=== PATIENT | male | born 2000 | race Two or more races ===

== ENCOUNTER → 2020-12-03 | Outpatient (CLI) | payer OTHER ==
[~2020-12-03] MED LIST: ISOVUE-300 61% 50ML VIAL As Ordered ONE; LIDOCAINE 1% MDV 20ML VIAL As Ordered ONE; TRIAMCINOLONE ACETONIDE SUSP 40 MG/ML VIAL (J3301) As Ordered ONE
--- NOTE | 2020-12-03 12:53 | REP ---
INDICATION: ISCHIAL CASULAR LIGAMENT SPRAIN LT HIP. COMPARISON: None TECHNIQUE: The procedure was performed by HERO Feliciano, under the direct supervision of Dr. Pineda. The benefits and risks of the procedure were explained to the patient, and an informed consent was obtained. Directly prior to the start of the procedure, a formal time-out was completed in the procedure room. The left femoral neck joint space was localized using fluoroscopic guidance. The skin was prepped and draped in a sterile fashion. Approximately 5 mL of 1% Lidocaine 10 mg/ml was used as a local anesthetic. Using fluoroscopic guidance, a #22 gauge spinal needle was inserted and advanced into the left femoral neck joint space. Approximately 1 mL of Isovue 300 was injected to verify placement. Ten mL of a solution containing 9 mL 1% lidocaine 10 mg/ml and 1 mL Kenalog 40 milligrams/milliliter was injected into the joint space. The needle was removed and hemostasis was achieved. FINDINGS: The patient tolerated the procedure well and there were no immediate complications. IMPRESSION: 1. Fluoroscopic guided left hip pain injection. 0.1 minutes of fluoroscopy time was utilized for this procedure. Some fluoroscopic images are performed with last image hold technology. These images require no additional radiation. <Electronically signed by Mónica Soni > 12/03/20 1231 <Electronically signed by Delvis Pineda > 12/03/20 [id number]
== END ==
LOC: M RADPRO 11:39
PROVIDERS: ATTEND Physician Assistant Surgical
DX: S73.122A Ischiocapsular ligament sprain of left hip, initial encounter (principal)
CPT/HCPCS: 20610; 77002; J3301; Q9967

== ENCOUNTER → 2020-12-29 | Outpatient (CLI) | payer OTHER ==
--- NOTE | 2020-12-29 14:12 | REP ---
INDICATION: PAIN IN LT WRIST. COMPARISON: None. TECHNIQUE: Axial T1. Coronal fat suppressed proton density, fat suppressed T2, and T1 multi-gradient. Sagittal T2 and T2 STIR. FINDINGS: The triangular fibrocartilage complex is intact and of normal appearing low signal throughout. The scapholunate and lunatotriquetral ligaments are intact. There is no abnormal fluid in the distal radioulnar joint. The chondral surfaces are smooth. There is a sub cm sized fluid collection between the triquetral and the piece of form. This is nonspecific. All imaged flexor and extensor tendons are intact and of normal appearing low signal throughout. There is no abnormal anterior bowing of the flexor retinaculum. There is no abnormal signal or enlargement of the imaged portion of the median nerve. The marrow signal is within normal limits. There is no evidence of a mass mass effect. IMPRESSION: There is a small collection of fluid seen in the wrist as described above. This is nonspecific. There is no evidence of acute internal derangement. <Electronically signed by Arik Peralta > 12/29/20 0427
== END ==
LOC: M PLAIMG 12:52
PROVIDERS: ATTEND Student in an Organized Health Care Education/Training Program
DX: M25.532 Pain in left wrist (principal)

== ENCOUNTER → 2021-02-04 | Outpatient (CLI) | payer OTHER ==
--- NOTE | 2021-02-04 11:01 | PFTRPT ---
Site: [facility], [address] [place] [address], [address] ID: [id number] Name: RADHA MONTES Visit Date: 02/04/2021 Second ID: [id number] Referring Doctor: Jennifer Perez Reviewing Doctor: Andrea Miranda MD Doctor Of Nursing Practice: Larissa AVILES RRT Age: 20 : 2000 Sex: Male Race: Height: 72.00 Inches Weight: 185.00 Lbs BSA: 2.06 Order IDs: [id number] Requested Test(s): <RESP-PFT.PFT B/A> Diagnosis: R06.02 test meet the ATS standards for acceptability and repeatability. Pt was given four puffs of albuterol for post bronchodilator. The results of this test appear to be valid, although the ATS standard for "end of test" was not met. Review Status: Not Reviewed Pre-Bronch Post-Bronch Pred Actual %Pred Actual %Chng SPIROMETRY FVC (L) 5.93 6.12 103 6.15 FEV1 (L) 4.90 4.99 101 5.38 7 FEV1/FVC (%) 84 81 96 88 7 FEF 25% (L/sec) 8.64 9.23 106 8.47 -8 FEF 50% (L/sec) 5.76 5.51 95 7.34 33 FEF 75% (L/sec) 2.35 2.37 100 3.47 46 FEF 25-75% (L/sec) 5.08 4.75 93 6.15 29 FEF Max (L/sec) 10.58 9.31 87 9.21 -1 FIVC (L) 5.26 5.92 12 FIF 50% (L/sec) 5.72 6.84 119 9.53 39 FIF Max (L/sec) 7.09 9.62 35 MVV (L/min) 195 148 75 Expiratory Time (sec) 5.98 6.23 4 Back Extrap Vol (L) 0.17 0.23 37 Time To FEFmax (sec) 0.108 0.196 81 LUNG VOLUMES SVC (L) 5.72 5.90 103 IC (L) 3.74 4.65 124 ERV (L) 1.98 1.25 62 TGV (L) 3.54 4.12 116 RV (Pleth) (L) 1.56 2.88 184 TLC (Pleth) (L) 7.28 8.77 120 RV/TLC (Pleth) (%) 21 33 156 DIFFUSION DLCOunc (ml/min/mmHg) 38.03 42.17 110 DLCOcor (ml/min/mmHg) 38.03 41.16 108 DL/VA (ml/min/mmHg/L) 5.22 5.30 101 VA (L) 7.28 7.77 106 BHT (sec) 10.18 IVC (L) 5.90 TLC (SB) (L) 7.92 AIRWAYS RESISTANCE Raw (cmH2O/L/s) 1.45 0.61 42 Gaw (L/s/cmH2O) 1.03 1.67 162 sRaw (cmH2O*s) 4.76 2.83 59 sGaw (1/cmH2O*s) 0.20 0.36 181 BLOOD GASES Hgb (gm/dL) 15.5
== END ==
LOC: M CARPUL 10:29
PROVIDERS: ATTEND Nurse Practitioner Adult Health
DX: R06.02 Shortness of breath (principal)

== ENCOUNTER → 2021-02-12 | Outpatient (CLI) | payer OTHER ==
[~2021-02-12] MED LIST changes: -ISOVUE-300 61% 50ML VIAL As Ordered ONE; -LIDOCAINE 1% MDV 20ML VIAL As Ordered ONE; +METHACHOLINE KIT (J7674) INH ONE; -TRIAMCINOLONE ACETONIDE SUSP 40 MG/ML VIAL (J3301) As Ordered ONE
--- NOTE | 2021-02-12 14:09 | PFTRPT ---
Height: 72.00 Inches Weight: 185.00 Lbs BSA: 2.06 Diagnosis: R06.02 DATE: 02/12/2021 ORDERED BY: Jennifer Elias QUALITY: Study of excellent technical quality. PROCEDURE: Under protocol, methacholine was administered. A dose of 2.5 mg or 13.875 CDUs, a 23% decline in the FEV1 was noted. PC of 1.56 is significant. Flow rates did return to baseline post bronchodilator administration. IMPRESSION: Positive methacholine challenge study. MTDD
== END ==
LOC: M CARPUL 02-09 10:59
PROVIDERS: ATTEND Nurse Practitioner Adult Health
DX: R06.02 Shortness of breath (principal)
CPT/HCPCS: 94070; J7674